=== PATIENT | female | born 1975 | race Two or more races ===

== ENCOUNTER → 2017-06-23 | Outpatient (CLI) | payer OTHER ==
--- NOTE | 2017-06-23 18:01 | RADRPT ---
EXAM DATE/TIME: 06/23/2017 16:43 [place] COMPARISON: No previous studies available for comparison. INDICATIONS : Right lateral knee pain for about one year, tear of unspecified meniscus. MEDICAL HISTORY : Hypothyroidism. SURGICAL HISTORY : None. ENCOUNTER: Initial ACUITY: > 1 year PAIN SCORE: 8/10 LOCATION: Right lateral knee. TECHNIQUE: Multiplanar, multisequence MRI examination was performed without contrast. FINDINGS: CRUCIATE LIGAMENTS: ACL and PCL are intact. MENISCI: Diffuse attenuation of the anterior horn of lateral meniscus suggesting prior partial meniscectomy. M edial meniscus is intact. COLLATERAL LIGAMENTS: MCL and LCL complexes are intact. BONE/CARTILAGE: Moderate severity articular cartilage thinning of the central to lateral weightbearing surfaces of th e lateral compartment with moderate severity subchondral reactive bony change. Moderate severity cent ral medial femoral condyle articular cartilage thinning. Bone marrow signal in this region is within normal limits. The medial femoral condyle chondral abnormality measures 6 mm in medial to lateral dim ension. Small moderate-sized lateral part osteophytes. Small medial compartment osteophytes. MISCELLANEOUS: Small joint effusion. Quadriceps tendon and patellar tendon are intact. CONCLUSION: 1. Osteoarthritic findings of the knee. Extensive moderate severity lateral compartment chondromalaci a. 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 2. Attenuated anterior horn lateral meniscus likely presenting prior partial meniscectomy. 3. Small joint effusion. Bertin De La Cruz MD on June 23, 2017 at 17:55 Board Certified Radiologist. This report was verified electronically.
== END ==
LOC: HRAD 15:47
PROVIDERS: ATTEND Orthopaedic Surgery
DX: S83.206A Unspecified tear of unspecified meniscus, current injury, right knee, initial encounter (principal); X58.XXXA Exposure to other specified factors, initial encounter
CPT/HCPCS: 73721